=== PATIENT | male | born 1930 | race Caucasian/White ===

== ENCOUNTER 2017-02-22 00:07 | Inpatient (IN) | payer MEDICARE ==
[2017-02-22] VITALS (887 sets, daily range): BP systolic 96–165; BP diastolic 64–95; PULSE 58–97; TEMP 97.6–98; O2SAT 88–100
[~2017-02-22] VITALS: Ht 165.1 cm; Wt 68.9 kg
[~2017-02-22 00:07] MED LIST: ALPHA LIPOIC A200 MG PO; ASPIRIN 32325 MG/TAB PO; ATIVAN 0.50.5 MG/TAB PO; BIOTIN1000 MCG; CALCIUM500 MG PO; CALCIUM600 M1 PO; CHROMIUM PICO500 MCG PO; CINNAMON500 MG PO; CO Q-1050 MG; CORDARONE200 MG/TAB PO; CRESTOR20 MG PO; CRESTOR40 MG PO; FOLIC ACID 40400 MCG; GLUCOPHAGE XR750 MG PO; GLUCOPHAGE500 MG/TAB; GLUCOPHAGE500 MG/TAB PO; HALLS5 MG MM; HYZAAR 25 MG-101 TAB PO; L-ARGININE500 M2 PO; L-CARNITINE500 MG PO; LASIX 40MG TABL40 MG PO; LUTEIN20 MG PO; MAALOX 225 MG/150 ML PO; MAGNESIUM100 MG; MULTI VITAMINS1 TAB PO; MULTIPLE VITAMI1 CAP PO; NAPROSYN25 MG/ML PO; NIACIN500 MG PO; NORCO 325 MG-51 TAB PO; NORVASC 10MG10 MG PO; OMEGA-3 FISH1200 MG; PANTOTHENIC AC500 MG PO; POTASSIUM75 MG; PRADAXA 150MG150 MG PO; PREDNISONE10 MG PO; PRENATAL MULTI PO; PRILOSEC 20MG20 MG PO; TENORMIN 5050 MG/TAB PO; TYLENOL 325MG325 MG PO; TYLENOL 500MG500 MG PO; VITAMIN B COMPL1 SGL PO; VITAMIN B COMPL1 T16 PO; VITAMIN C500 MG PO; VITAMIN D32000 I1 PO; ZESTRIL 20MG TA20 MG PO; ZESTRIL40 MG PO; ZITHROMAX500 M2 PO; [UNRECOGNIZED DRUG - OTHER] PO
[2017-02-22 00:40] LABS: BASO # 0.1 (0.0-0.2); BASO % 0.5 % (0.0-2.0); EOS # 0.6 (0.0-0.7); EOS % 4.8 % (0-4.0); GRAN # 9.2 (1.4-6.5); GRAN % 75.4 % (42.2-75.2); HEMATOCRIT 38.5 % (42.0-52.0); HEMOGLOBIN 12.7 g/dl (13.5-18.0); LYMPH # 1.3 (1.2-3.4); MEAN CELL VOLUME 88 fl (80.0-100.0); MEAN CORPUSCULAR HEMOGLOBIN 29 pg (27.0-31.0); MEAN CORPUSCULAR HGB CONC 33 g/dl (33.0-37.0); MEAN PLATELET VOLUME 11.1 fl (7.4-10.4); MONO % 7.8 % (1.7-9.3); PLATELET COUNT 195 K/mm3 (130-400); RED BLOOD COUNT 4.36 M/mm3 (4.20-5.60); REDCELL DISTRIBUTION WIDTH-CV 14.3 % (11.5-14.5); WHITE BLOOD COUNT 12.2 K/mm3 (4.8-10.8)
[2017-02-22 00:44] LABS: INR 1.4 (0.8-3.0); PROTHROMBIN TIME 15.4 SECONDS (9.7-12.8)
[2017-02-22 00:47] LABS: PARTIAL THROMBOPLASTIN TIME 31.8 SECONDS (26.0-37.0)
[2017-02-22 01:02] LABS: ADJUSTED CALCIUM 10.1 mg/dL (8.4-10.2); ALBUMIN 4.4 gm/dL (3.5-5.0); BILIRUBIN,TOTAL 0.9 mg/dL (0.0-1.0); CALCIUM 10.4 mg/dL (8.4-10.2); CREATININE, serum 0.91 mg/dL (0.66-1.25); POTASSIUM 4.2 mmol/L (3.4-5.0); TOTAL PROTEIN 7.5 gm/dL (6.4-8.2)
[2017-02-22 01:12] LABS: TROPONIN-I 0.015 ng/mL (0.000-0.034)
[2017-02-22] MEDS ORDERED: CRESTOR 10MG10 MG PO (01:27)
[2017-02-22] MEDS ORDERED: ENTRESTO 24 MG1 EACH PO (01:27)
[2017-02-22] MEDS ORDERED: ELIQUIS 5MG PO (01:46)
[2017-02-22] MEDS ORDERED: NITROSTAT0.4 MG/TAB SL (01:48)
[2017-02-22] MEDS ORDERED: ASPIRIN 81M81 MG/TA2 PO (01:49)
[2017-02-22] MEDS ORDERED: JANUVIA 100MG100 MG PO (01:49)
[2017-02-22] MEDS ORDERED: VITAMIN D32000 I1 PO (01:50)
[2017-02-22] MEDS ORDERED: OSCAL 500 TAB500 MG PO (01:52)
[2017-02-22] MEDS ORDERED: OMEGA-3 1000 MG1 CAP PO (01:52)
[2017-02-22] MEDS ORDERED: CINSULIN PO (01:54)
[2017-02-22 12:20] LABS: BASO # 0.1 (0.0-0.2); BASO % 0.6 % (0.0-2.0); EOS # 0.2 (0.0-0.7); EOS % 2.6 % (0-4.0); GRAN # 6.8 (1.4-6.5); LYMPH # 0.9 (1.2-3.4); LYMPH % 9.9 % (20.0-51.0); MEAN CELL VOLUME 88 fl (80.0-100.0); MEAN CORPUSCULAR HGB CONC 33 g/dl (33.0-37.0); MEAN PLATELET VOLUME 12.1 fl (7.4-10.4); MONO # 0.9 (0.1-0.6); MONO % 9.6 % (1.7-9.3); PLATELET COUNT 151 K/mm3 (130-400); RED BLOOD COUNT 4.09 M/mm3 (4.20-5.60); REDCELL DISTRIBUTION WIDTH-CV 14.3 % (11.5-14.5); WHITE BLOOD COUNT 8.8 K/mm3 (4.8-10.8)
[2017-02-22 12:22] LABS: HEMATOCRIT 35.9 % (42.0-52.0); HEMOGLOBIN 11.8 g/dl (13.5-18.0); MEAN CORPUSCULAR HEMOGLOBIN 29 pg (27.0-31.0)
[2017-02-22 12:27] LABS: CALCIUM 9.8 mg/dL (8.4-10.2); CREATININE, serum 0.86 mg/dL (0.66-1.25); MAGNESIUM 1.4 mg/dL (1.6-2.3); PHOSPHOROUS 3.4 mg/dL (2.5-4.5); POTASSIUM 3.9 mmol/L (3.4-5.0)
[2017-02-23] VITALS (652 sets, daily range): BP systolic 97–135; BP diastolic 54–78; PULSE 50–90; TEMP 97.6–98.2; O2SAT 81–100
[2017-02-23 06:41] LABS: CALCIUM 9.5 mg/dL (8.4-10.2); CREATININE, serum 1.06 mg/dL (0.66-1.25); MAGNESIUM 1.3 mg/dL (1.6-2.3); POTASSIUM 3.3 mmol/L (3.4-5.0)
[2017-02-24 03:46] VITALS: BP 125/57; PULSE 51; TEMP 97.7
[2017-02-24 07:51] LABS: CALCIUM 9.7 mg/dL (8.4-10.2); CREATININE, serum 1.22 mg/dL (0.66-1.25); MAGNESIUM 1.8 mg/dL (1.6-2.3); POTASSIUM 4.2 mmol/L (3.4-5.0)
[2017-02-24 08:16] VITALS: BP 129/67; PULSE 47; TEMP 98
[2017-02-24 12:01] VITALS: BP 121/52; PULSE 51; TEMP 98.3
== END 2017-02-24 15:51 | disposition home or self-care (01) | DRG 293 ==
LOC: COL.ER 00:07 → IMCU 01:26 → MEDICAL 02-23 17:50
PROVIDERS: Emergency Medicine; Internal Medicine; Nurse Practitioner Family
DX: I11.0 Hypertensive heart disease with heart failure (principal); I50.23 Acute on chronic systolic (congestive) heart failure; I48.91 Unspecified atrial fibrillation; I25.10 Atherosclerotic heart disease of native coronary artery without angina pectoris; Z95.1 Presence of aortocoronary bypass graft; E11.9 Type 2 diabetes mellitus without complications; Z85.72 Personal history of non-Hodgkin lymphomas; Z79.01 Long term (current) use of anticoagulants; Z87.891 Personal history of nicotine dependence
CPT/HCPCS: 99222-AI; 99232-AI; 99238; J0282; J1815; J1940; J3475; J7050; J7060

== ENCOUNTER 2017-08-04 06:46 | Observation (INO) | payer MEDICARE ==
[~2017-08-04] VITALS: Ht 165.1 cm; Wt 68.8 kg
[~2017-08-04 06:46] MED LIST changes: +ASPIRIN 81M81 MG/TA2 PO; +CINSULIN PO; +CRESTOR 10MG10 MG PO; +ELIQUIS 5MG PO; +ENTRESTO 24 MG1 EACH PO; +JANUVIA 100MG100 MG PO; +NITROSTAT0.4 MG/TAB SL; +OMEGA-3 1000 MG1 CAP PO; +OSCAL 500 TAB500 MG PO
[2017-08-04] MEDS ORDERED: CRESTOR 10MG10 MG PO (07:07)
[2017-08-04] MEDS ORDERED: TENORMIN 5050 MG/TAB PO (07:07)
[2017-08-04] MEDS ORDERED: ENTRESTO 97 MG1 EACH PO (07:07)
[2017-08-04] MEDS ORDERED: GLUCOPHAGE XR750 MG PO (07:08)
[2017-08-04] MEDS ORDERED: ELIQUIS 5MG PO (07:08)
[2017-08-04] MEDS ORDERED: CORDARONE200 MG/TAB PO (07:08)
[2017-08-04] MEDS ORDERED: ASPIRIN E.C. 8181 MG PO (07:09)
[2017-08-04] MEDS ORDERED: NITROSTAT0.4 MG/TAB SL (07:09)
[2017-08-04] MEDS ORDERED: NORVASC 5MG5 MG/TAB PO (07:09)
[2017-08-04] MEDS ORDERED: B COMPLEX #11 TAB PO (07:10)
[2017-08-04] MEDS ORDERED: PROBIOTIC FORMU1 CAP PO (07:10)
[2017-08-04] MEDS ORDERED: MASON NATURAL2000 IU PO (07:11)
[2017-08-04] MEDS ORDERED: OMEGA-3 1000 MG1 CAP PO (07:11)
[2017-08-04] MEDS ORDERED: OSCAL 500 TAB500 MG PO (07:11)
[2017-08-04] MEDS ORDERED: CINNAMON500 MG PO (07:12)
[2017-08-04 07:42] LABS: ARTERIAL BLD GAS O2 SATURATION 92.5 % (92-100); ARTERIAL BLD GAS TCO2 CT 27.2; ARTERIAL BLOOD GAS BASE EXCESS 1.4 (-2-2); ARTERIAL BLOOD GAS HCO3 25.9 meq/L (22-26); ARTERIAL BLOOD GAS PO2 64.2 mmHg (80-100); ARTERIAL BLOOD GAS pH 7.42 (7.35-7.45); OXYHEMOGLOBIN 91.6 %
[2017-08-04 07:44] LABS: ALLEN TEST YES; ALLENS TEST RESULT PASS; ATS? YES
[2017-08-04 08:11] LABS: BASO # 0.1 (0.0-0.2); BASO % 0.8 % (0.0-2.0); EOS # 0.3 (0.0-0.7); EOS % 3.7 % (0-4.0); GRAN % 79.6 % (42.2-75.2); LYMPH # 0.6 (1.2-3.4); LYMPH % 7.2 % (20.0-51.0); MEAN CELL VOLUME 93 fl (80.0-100.0); MEAN CORPUSCULAR HGB CONC 32 g/dl (33.0-37.0); MEAN PLATELET VOLUME 11.2 fl (7.4-10.4); MONO # 0.7 (0.1-0.6); MONO % 8.2 % (1.7-9.3); PLATELET COUNT 166 K/mm3 (130-400); REDCELL DISTRIBUTION WIDTH-CV 14.6 % (11.5-14.5); WHITE BLOOD COUNT 8.8 K/mm3 (4.8-10.8)
[2017-08-04 08:12] LABS: HEMATOCRIT 32.4 % (42.0-52.0); HEMOGLOBIN 10.3 g/dl (13.5-18.0); MEAN CORPUSCULAR HEMOGLOBIN 29 pg (27.0-31.0)
[2017-08-04 08:14] LABS: INR 1.3 (0.8-3.0)
[2017-08-04 08:17] LABS: PARTIAL THROMBOPLASTIN TIME 38.9 SECONDS (26.0-37.0)
[2017-08-04 08:28] LABS: ADJUSTED CALCIUM 9.6 mg/dL (8.4-10.2); ALBUMIN 3.9 gm/dL (3.5-5.0); BILIRUBIN,TOTAL 1.1 mg/dL (0.0-1.0); CALCIUM 9.5 mg/dL (8.4-10.2); CREATININE, serum 0.89 mg/dL (0.66-1.25); POTASSIUM 3.9 mmol/L (3.4-5.0); TOTAL PROTEIN 6.3 gm/dL (6.4-8.2)
[2017-08-04 08:40] LABS: TROPONIN-I 0.023 ng/mL (0.000-0.034)
[2017-08-04] MEDS ORDERED: LASIX 20MG TABL20 MG PO (08:44)
[2017-08-04] MEDS ORDERED: PACERONE100 MG PO (08:44)
[2017-08-04] MEDS ORDERED: HCTZ 25MG TAB25 MG PO (08:44)
[2017-08-04 10:25] VITALS: BP 152/63; PULSE 49; TEMP 97.6
[2017-08-04 14:02] VITALS: BP 132/56; PULSE 57; TEMP 98.4
[2017-08-04 17:41] VITALS: BP 138/61; PULSE 48; TEMP 98.6
[2017-08-04 21:07] VITALS: BP 123/54; PULSE 51; TEMP 97.7
[2017-08-05 03:05] VITALS: BP 136/50; PULSE 92; TEMP 98
[2017-08-05 04:53] LABS: CALCIUM 9.5 mg/dL (8.4-10.2); CREATININE, serum 1.11 mg/dL (0.66-1.25); MAGNESIUM 1.5 mg/dL (1.6-2.3); POTASSIUM 3.5 mmol/L (3.4-5.0)
[2017-08-05 08:55] VITALS: BP 136/49; PULSE 51; TEMP 98.3
[2017-08-05] MEDS ORDERED: K-TAB20 PO (09:19)
[2017-08-05] MEDS ORDERED: LASIX 40MG TABL40 MG PO (09:27)
[2017-08-05] MEDS ORDERED: VENTOLIN0.09 MG IH (09:27)
[2017-08-05] MEDS ORDERED: PREDNISONE20 MG PO (09:29)
== END 2017-08-05 10:00 | disposition home or self-care (01) ==
LOC: COL.ER 06:46 → SURG 09:15
PROVIDERS: Emergency Medicine; Internal Medicine
DX: I11.0 Hypertensive heart disease with heart failure (principal); I50.9 Heart failure, unspecified; J43.9 Emphysema, unspecified; I48.0 Paroxysmal atrial fibrillation; E11.9 Type 2 diabetes mellitus without complications; C85.90 Non-Hodgkin lymphoma, unspecified, unspecified site; I08.3 Combined rheumatic disorders of mitral, aortic and tricuspid valves; E78.5 Hyperlipidemia, unspecified; Z79.01 Long term (current) use of anticoagulants; Z79.84 Long term (current) use of oral hypoglycemic drugs; Z87.891 Personal history of nicotine dependence; Z80.0 Family history of malignant neoplasm of digestive organs; Z80.43 Family history of malignant neoplasm of testis
CPT/HCPCS: G0378; J1644; J1815; J1940; J2270; J7512

== ENCOUNTER 2017-12-02 07:55 | Inpatient (IN) | payer MEDICARE ==
[2017-12-02] VITALS (501 sets, daily range): BP systolic 147–158; BP diastolic 76–94; PULSE 65–84; TEMP 97.2–97.6; O2SAT 82–98
[~2017-12-02] VITALS: Ht 165.1 cm; Wt 64.1 kg
[~2017-12-02 07:55] MED LIST changes: +ASPIRIN E.C. 8181 MG PO; +B COMPLEX #11 TAB PO; +ENTRESTO 97 MG1 EACH PO; +HCTZ 25MG TAB25 MG PO; +K-TAB20 PO; +LASIX 20MG TABL20 MG PO; +MASON NATURAL2000 IU PO; +NORVASC 5MG5 MG/TAB PO; +PACERONE100 MG PO; +PREDNISONE20 MG PO; +PROBIOTIC FORMU1 CAP PO; +VENTOLIN0.09 MG IH
[2017-12-02 08:40] LABS: BASO % 0.4 % (0.0-2.0); EOS # 0.7 (0.0-0.7); GRAN # 8.4 (1.4-6.5); GRAN % 79.5 % (42.2-75.2); LYMPH # 0.6 (1.2-3.4); LYMPH % 5.2 % (20.0-51.0); MEAN CELL VOLUME 89 fl (80.0-100.0); MEAN CORPUSCULAR HGB CONC 32 g/dl (33.0-37.0); MEAN PLATELET VOLUME 10.3 fl (7.4-10.4); MONO # 0.8 (0.1-0.6); MONO % 7.1 % (1.7-9.3); PLATELET COUNT 319 K/mm3 (130-400); RED BLOOD COUNT 3.27 M/mm3 (4.20-5.60); REDCELL DISTRIBUTION WIDTH-CV 14.6 % (11.5-14.5)
[2017-12-02 08:41] LABS: HEMATOCRIT 29.2 % (42.0-52.0); HEMOGLOBIN 9.2 g/dl (13.5-18.0); MEAN CORPUSCULAR HEMOGLOBIN 28 pg (27.0-31.0)
[2017-12-02] MEDS ORDERED: TOPROL XL 25MG25 MG PO (08:43)
[2017-12-02 08:44] LABS: INR 2.1 (0.8-3.0); PROTHROMBIN TIME 24.2 SECONDS (9.7-12.8)
[2017-12-02] MEDS ORDERED: COZAAR100 MG PO (08:44)
[2017-12-02 08:45] LABS: ALBUMIN 3.8 gm/dL (3.5-5.0); BILIRUBIN,TOTAL 0.7 mg/dL (0.0-1.0); C-REACTIVE PROTEIN 8.1 mg/dL (0.0-0.9); CALCIUM 9.6 mg/dL (8.4-10.2); CREATININE, serum 0.94 mg/dL (0.66-1.25); POTASSIUM 3.5 mmol/L (3.4-5.0); TOTAL PROTEIN 6.8 gm/dL (6.4-8.2)
[2017-12-02 08:56] LABS: INFLUENZA A NEGATIVE; INFLUENZA B NEGATIVE
[2017-12-02 08:59] LABS: TROPONIN-I 0.036 ng/mL (0.000-0.034)
[2017-12-02 09:04] LABS: COLLECTION METHOD CLEAN CATCH
[2017-12-02 09:15] LABS: PH 5 (5-8); SQUAMOUS EPITHELIAL None Seen /hpf; URINE APPEARANCE Clear; URINE BACTERIA None Seen /hpf; URINE BILIRUBIN Negative (NEGATIVE); URINE BLOOD Negative (NEGATIVE); URINE COLOR Straw; URINE GLUCOSE Negative (NEGATIVE); URINE KETONE Negative (NEGATIVE); URINE LEUKOCYTE ESTERASE Negative (NEGATIVE); URINE NITRATE Negative (NEGATIVE); URINE PROTEIN(semi-quant) Negative (NEGATIVE); URINE RBC 0-2 /hpf; URINE UROBILINOGEN Negative (NEGATIVE)
[2017-12-02 18:19] LABS: CALCIUM 9.3 mg/dL (8.4-10.2); CREATININE, serum 0.91 mg/dL (0.66-1.25); POTASSIUM 3.6 mmol/L (3.4-5.0)
[2017-12-03] VITALS (1177 sets, daily range): BP systolic 90–154; BP diastolic 69–85; PULSE 64–116; TEMP 97.1–98.1; O2SAT 73–100
[2017-12-03 05:01] LABS: BASO % 0.4 % (0.0-2.0); EOS # 0.5 (0.0-0.7); EOS % 4.1 % (0-4.0); GRAN # 9.1 (1.4-6.5); GRAN % 83.7 % (42.2-75.2); LYMPH # 0.5 (1.2-3.4); LYMPH % 4.9 % (20.0-51.0); MEAN CELL VOLUME 88 fl (80.0-100.0); MEAN CORPUSCULAR HGB CONC 32 g/dl (33.0-37.0); MEAN PLATELET VOLUME 9.8 fl (7.4-10.4); MONO # 0.7 (0.1-0.6); MONO % 6.3 % (1.7-9.3); PLATELET COUNT 312 K/mm3 (130-400); RED BLOOD COUNT 3.22 M/mm3 (4.20-5.60); REDCELL DISTRIBUTION WIDTH-CV 14.4 % (11.5-14.5)
[2017-12-03 05:03] LABS: HEMATOCRIT 28.4 % (42.0-52.0); MEAN CORPUSCULAR HEMOGLOBIN 28 pg (27.0-31.0)
[2017-12-03 05:10] LABS: CALCIUM 9.8 mg/dL (8.4-10.2); CREATININE, serum 0.86 mg/dL (0.66-1.25); POTASSIUM 3.3 mmol/L (3.4-5.0)
[2017-12-03 05:16] LABS: MAGNESIUM 1.2 mg/dL (1.6-2.3); PHOSPHOROUS 3.7 mg/dL (2.5-4.5)
[2017-12-03 10:24] LABS: ARTERIAL BLD GAS O2 SATURATION 91.9 % (92-100); ARTERIAL BLD GAS TCO2 CT 29.9; ARTERIAL BLOOD GAS BASE EXCESS 5.3 (-2-2); ARTERIAL BLOOD GAS HCO3 28.8 meq/L (22-26); ARTERIAL BLOOD GAS PCO2 37.3 mmHg (35-45); ARTERIAL BLOOD GAS PO2 62.5 mmHg (80-100); ARTERIAL BLOOD GAS pH 7.51 (7.35-7.45)
[2017-12-04] VITALS (1172 sets, daily range): BP systolic 117–143; BP diastolic 61–77; PULSE 63–77; TEMP 97–98.2; O2SAT 72–100
[2017-12-04 06:53] LABS: BASO # 0.1 (0.0-0.2); BASO % 0.7 % (0.0-2.0); EOS # 0.7 (0.0-0.7); EOS % 7.9 % (0-4.0); GRAN # 6.9 (1.4-6.5); GRAN % 76.6 % (42.2-75.2); LYMPH # 0.6 (1.2-3.4); LYMPH % 6.3 % (20.0-51.0); MEAN CELL VOLUME 88 fl (80.0-100.0); MEAN CORPUSCULAR HGB CONC 32 g/dl (33.0-37.0); MEAN PLATELET VOLUME 10.2 fl (7.4-10.4); MONO # 0.7 (0.1-0.6); MONO % 8.2 % (1.7-9.3); PLATELET COUNT 318 K/mm3 (130-400); RED BLOOD COUNT 2.98 M/mm3 (4.20-5.60); REDCELL DISTRIBUTION WIDTH-CV 14.5 % (11.5-14.5)
[2017-12-04 06:56] LABS: HEMATOCRIT 26.3 % (42.0-52.0); HEMOGLOBIN 8.4 g/dl (13.5-18.0); MEAN CORPUSCULAR HEMOGLOBIN 28 pg (27.0-31.0)
[2017-12-04 07:05] LABS: ALBUMIN 3.1 gm/dL (3.5-5.0); BILIRUBIN,TOTAL 0.5 mg/dL (0.0-1.0); CALCIUM 9.1 mg/dL (8.4-10.2); CREATININE, serum 0.91 mg/dL (0.66-1.25); MAGNESIUM 2.1 mg/dL (1.6-2.3); POTASSIUM 4.2 mmol/L (3.4-5.0)
[2017-12-05] VITALS (898 sets, daily range): BP systolic 110–143; BP diastolic 49–74; PULSE 58–78; TEMP 97–98.5; O2SAT 72–100
[2017-12-05 06:18] LABS: BASO # 0.1 (0.0-0.2); BASO % 0.9 % (0.0-2.0); EOS # 0.8 (0.0-0.7); EOS % 9.7 % (0-4.0); GRAN # 5.9 (1.4-6.5); GRAN % 73.8 % (42.2-75.2); LYMPH # 0.5 (1.2-3.4); LYMPH % 6.8 % (20.0-51.0); MEAN CELL VOLUME 88 fl (80.0-100.0); MEAN CORPUSCULAR HGB CONC 32 g/dl (33.0-37.0); MEAN PLATELET VOLUME 10.2 fl (7.4-10.4); MONO # 0.7 (0.1-0.6); MONO % 8.4 % (1.7-9.3); PLATELET COUNT 356 K/mm3 (130-400); RED BLOOD COUNT 3.13 M/mm3 (4.20-5.60); REDCELL DISTRIBUTION WIDTH-CV 14.6 % (11.5-14.5)
[2017-12-05 06:28] LABS: HEMATOCRIT 27.6 % (42.0-52.0); HEMOGLOBIN 8.7 g/dl (13.5-18.0); MEAN CORPUSCULAR HEMOGLOBIN 28 pg (27.0-31.0)
[2017-12-05 06:37] LABS: CALCIUM 9.5 mg/dL (8.4-10.2); CREATININE, serum 0.93 mg/dL (0.66-1.25); MAGNESIUM 1.7 mg/dL (1.6-2.3); PHOSPHOROUS 4.7 mg/dL (2.5-4.5); POTASSIUM 3.8 mmol/L (3.4-5.0)
[2017-12-05 10:55] LABS: INR 1.3 (0.8-3.0); PROTHROMBIN TIME 15.2 SECONDS (9.7-12.8)
[2017-12-06] VITALS (13 sets, daily range): BP systolic 102–137; BP diastolic 49–64; PULSE 7–76; TEMP 97.3–98.6
[2017-12-06 07:22] LABS: CALCIUM 9.6 mg/dL (8.4-10.2); POTASSIUM 4.2 mmol/L (3.4-5.0)
[2017-12-07] VITALS (11 sets, daily range): BP systolic 102–145; BP diastolic 43–115; PULSE 58–79; TEMP 97.7–98.2
[2017-12-07 07:28] LABS: BASO # 0.1 (0.0-0.2); BASO % 0.7 % (0.0-2.0); EOS # 0.8 (0.0-0.7); EOS % 9.5 % (0-4.0); GRAN # 5.9 (1.4-6.5); GRAN % 72.9 % (42.2-75.2); LYMPH # 0.6 (1.2-3.4); LYMPH % 7.3 % (20.0-51.0); MEAN CELL VOLUME 89 fl (80.0-100.0); MEAN CORPUSCULAR HGB CONC 31 g/dl (33.0-37.0); MEAN PLATELET VOLUME 10.4 fl (7.4-10.4); MONO # 0.8 (0.1-0.6); MONO % 9.5 % (1.7-9.3); PLATELET COUNT 355 K/mm3 (130-400); RED BLOOD COUNT 2.83 M/mm3 (4.20-5.60); REDCELL DISTRIBUTION WIDTH-CV 14.2 % (11.5-14.5)
[2017-12-07 07:37] LABS: HEMATOCRIT 25.2 % (42.0-52.0); HEMOGLOBIN 7.9 g/dl (13.5-18.0); MEAN CORPUSCULAR HEMOGLOBIN 28 pg (27.0-31.0)
[2017-12-07 07:44] LABS: CALCIUM 9.2 mg/dL (8.4-10.2); CREATININE, serum 1.15 mg/dL (0.66-1.25)
[2017-12-07 10:21] LABS: RETIC # 0.06 M/mm3 (0.02-0.16); RETIC % 1.8 % (0.5-3.52)
[2017-12-07 10:34] LABS: IRON,SERUM 19 ug/dL (35-150)
[2017-12-07 10:45] LABS: TOTAL IRON BINDING CAPACITY 281 ug/dL (261-462)
[2017-12-07 11:06] LABS: FERRITIN 107 ng/mL (18-464)
[2017-12-08 03:13] VITALS: BP 104/43; PULSE 57; TEMP 98.6
[2017-12-08 06:16] LABS: BASO # 0.1 (0.0-0.2); BASO % 1.1 % (0.0-2.0); EOS # 0.8 (0.0-0.7); EOS % 11.7 % (0-4.0); GRAN # 4.3 (1.4-6.5); GRAN % 64.5 % (42.2-75.2); LYMPH # 0.7 (1.2-3.4); LYMPH % 10.6 % (20.0-51.0); MEAN CELL VOLUME 89 fl (80.0-100.0); MEAN CORPUSCULAR HGB CONC 32 g/dl (33.0-37.0); MEAN PLATELET VOLUME 10.2 fl (7.4-10.4); MONO # 0.8 (0.1-0.6); MONO % 11.8 % (1.7-9.3); PLATELET COUNT 334 K/mm3 (130-400); RED BLOOD COUNT 2.99 M/mm3 (4.20-5.60); REDCELL DISTRIBUTION WIDTH-CV 14.3 % (11.5-14.5)
[2017-12-08 06:26] LABS: HEMATOCRIT 26.7 % (42.0-52.0); HEMOGLOBIN 8.4 g/dl (13.5-18.0); MEAN CORPUSCULAR HEMOGLOBIN 28 pg (27.0-31.0)
[2017-12-08 06:33] LABS: CALCIUM 9.2 mg/dL (8.4-10.2); CREATININE, serum 1.23 mg/dL (0.66-1.25); POTASSIUM 3.8 mmol/L (3.4-5.0)
[2017-12-08 08:18] VITALS: BP 117/58; PULSE 71; TEMP 98.7
[2017-12-08 12:06] VITALS: BP 107/52; PULSE 55; TEMP 97.7
[2017-12-08] MEDS ORDERED: PACERONE200 MG PO (13:34)
[2017-12-08] MEDS ORDERED: ALDACTONE 25MG25 M1 PO (13:35)
[2017-12-08] MEDS ORDERED: STOOL SOFTENER100 M2 PO (13:36)
[2017-12-08] MEDS ORDERED: COREG 3.123.125 MG/T PO (13:36)
[2017-12-08] MEDS ORDERED: FLOMAX 0.40.4 MG/CAP PO (13:36)
[2017-12-08] MEDS ORDERED: IMDUR 30MG30 MG/TAB PO (13:37)
[2017-12-08] MEDS ORDERED: FERROUS SU325 MG/TAB PO (13:37)
== END 2017-12-08 17:08 | disposition home or self-care (01) | DRG 291 ==
LOC: COL.ER 07:55 → ICU 09:32 → MEDICAL 12-05 17:45
PROVIDERS: Emergency Medicine; Internal Medicine; Internal Medicine Pulmonary Disease; Physician Assistant
DX: I11.0 Hypertensive heart disease with heart failure (principal); J96.01 Acute respiratory failure with hypoxia; J98.11 Atelectasis; E44.0 Moderate protein-calorie malnutrition; I50.23 Acute on chronic systolic (congestive) heart failure; I25.10 Atherosclerotic heart disease of native coronary artery without angina pectoris; Z95.1 Presence of aortocoronary bypass graft; E11.9 Type 2 diabetes mellitus without complications; I48.0 Paroxysmal atrial fibrillation; D64.9 Anemia, unspecified; Z85.72 Personal history of non-Hodgkin lymphomas; E87.6 Hypokalemia; E83.42 Hypomagnesemia; N13.9 Obstructive and reflux uropathy, unspecified
CPT/HCPCS: 99222-AI; 99232-AI; 99233-AI; 99239; A9284; A9502; G0103; J0456; J0696; J1815; J1940; J2785; J3475; J3480; J7050; P9016; Q9967

== ENCOUNTER → 2018-01-27 | Outpatient (CLI) | payer MEDICARE ==
[~2018-01-27] MED LIST changes: +ALDACTONE 25MG25 M1 PO; +COREG 3.123.125 MG/T PO; +COZAAR100 MG PO; +FERROUS SU325 MG/TAB PO; +FLOMAX 0.40.4 MG/CAP PO; +IMDUR 30MG30 MG/TAB PO; +PACERONE200 MG PO; +STOOL SOFTENER100 M2 PO; +TOPROL XL 25MG25 MG PO
== END ==
LOC: COL.RAD 09:46
DX: C85.91 Non-Hodgkin lymphoma, unspecified, lymph nodes of head, face, and neck (principal); C83.38 Diffuse large B-cell lymphoma, lymph nodes of multiple sites; R91.8 Other nonspecific abnormal finding of lung field; K22.8 Other specified diseases of esophagus; I70.0 Atherosclerosis of aorta; I25.10 Atherosclerotic heart disease of native coronary artery without angina pectoris; K43.9 Ventral hernia without obstruction or gangrene; I77.819 Aortic ectasia, unspecified site
CPT/HCPCS: Q9967

== ENCOUNTER 2018-05-03 19:44 | Emergency (ER) | payer MEDICARE ==
[~2018-05-03] VITALS: Ht 165.1 cm; Wt 86.4 kg
[2018-05-03 20:08] LABS: BASO % 0.3 % (0.0-2.0); EOS # 0.4 (0.0-0.7); EOS % 6.5 % (0-4.0); GRAN # 3.3 (1.4-6.5); GRAN % 52.7 % (42.2-75.2); LYMPH # 2.2 (1.2-3.4); MEAN CELL VOLUME 94 fl (80.0-100.0); MEAN CORPUSCULAR HGB CONC 32 g/dl (33.0-37.0); MEAN PLATELET VOLUME 10.2 fl (7.4-10.4); MONO # 0.4 (0.1-0.6); MONO % 5.7 % (1.7-9.3); PLATELET COUNT 116 K/mm3 (130-400); RED BLOOD COUNT 1.98 M/mm3 (4.20-5.60); REDCELL DISTRIBUTION WIDTH-CV 14.3 % (11.5-14.5)
[2018-05-03 20:11] LABS: HEMATOCRIT 18.7 % (42.0-52.0); MEAN CORPUSCULAR HEMOGLOBIN 30 pg (27.0-31.0)
[2018-05-03 20:13] VITALS: TEMP 97.1
[2018-05-03 20:15] LABS: CREATININE, serum 0.87 mg/dL (0.66-1.25)
[2018-05-03 20:22] LABS: POTASSIUM 2.7 mmol/L (3.4-5.0)
[2018-05-03 20:24] LABS: CALCIUM 4.5 mg/dL (8.4-10.2)
[2018-05-03 20:24] LABS: ARTERIAL BLD GAS O2 SATURATION 98.9 % (92-100); ARTERIAL BLD GAS TCO2 CT 17.2; ARTERIAL BLOOD GAS BASE EXCESS -7.9 (-2-2); ARTERIAL BLOOD GAS HCO3 16.3 meq/L (22-26); ARTERIAL BLOOD GAS PCO2 28.6 mmHg (35-45); ARTERIAL BLOOD GAS pH 7.37 (7.35-7.45)
[2018-05-03 20:25] LABS: ARTERIAL BLOOD GAS PO2 523.9 mmHg (80-100)
[2018-05-03 20:30] LABS: TROPONIN-I 0.051 ng/mL (0.000-0.034)
[2018-05-03 20:36] VITALS: BP 79/46; PULSE 69
== END 2018-05-03 20:55 | disposition short-term general hospital (02) ==
LOC: COL.ER 19:44
PROVIDERS: Emergency Medicine
DX: R00.1 Bradycardia, unspecified (principal); I46.9 Cardiac arrest, cause unspecified; I25.10 Atherosclerotic heart disease of native coronary artery without angina pectoris; Z79.84 Long term (current) use of oral hypoglycemic drugs; Z79.82 Long term (current) use of aspirin; Z95.1 Presence of aortocoronary bypass graft
CPT/HCPCS: J3010

== ENCOUNTER 2018-05-19 14:37 | Emergency (ER) | payer MEDICARE ==
[~2018-05-19] VITALS: Ht 165.1 cm; Wt 65.5 kg
[2018-05-19 14:39] VITALS: TEMP 98.2
[2018-05-19 15:21] LABS: BASO # 0.1 (0.0-0.2); BASO % 0.7 % (0.0-2.0); EOS # 0.3 (0.0-0.7); EOS % 4.1 % (0-4.0); GRAN # 6.8 (1.4-6.5); GRAN % 81.1 % (42.2-75.2); LYMPH # 0.4 (1.2-3.4); LYMPH % 4.9 % (20.0-51.0); MEAN CELL VOLUME 95 fl (80.0-100.0); MEAN CORPUSCULAR HGB CONC 31 g/dl (33.0-37.0); MEAN PLATELET VOLUME 9.9 fl (7.4-10.4); MONO # 0.7 (0.1-0.6); MONO % 8.7 % (1.7-9.3); PLATELET COUNT 312 K/mm3 (130-400); RED BLOOD COUNT 2.37 M/mm3 (4.20-5.60); REDCELL DISTRIBUTION WIDTH-CV 15.6 % (11.5-14.5)
[2018-05-19 15:22] LABS: HEMATOCRIT 22.5 % (42.0-52.0); MEAN CORPUSCULAR HEMOGLOBIN 30 pg (27.0-31.0)
[2018-05-19 15:36] LABS: ALBUMIN 3.1 gm/dL (3.5-5.0); BILIRUBIN,TOTAL 0.4 mg/dL (0.0-1.0); C-REACTIVE PROTEIN 2.7 mg/dL (0.0-0.9); CALCIUM 8.9 mg/dL (8.4-10.2); CREATININE, serum 1.36 mg/dL (0.66-1.25); POTASSIUM 3.4 mmol/L (3.4-5.0)
[2018-05-19 15:48] LABS: TROPONIN-I 0.039 ng/mL (0.000-0.034)
[2018-05-19 16:26] LABS: COLLECTION METHOD CLEAN CATCH
[2018-05-19 16:42] LABS: PH 5 (5-8); URINE APPEARANCE Hazy; URINE BACTERIA None Seen /hpf; URINE BILIRUBIN Negative (NEGATIVE); URINE BLOOD 1+ (NEGATIVE); URINE COLOR Yellow; URINE GLUCOSE Negative (NEGATIVE); URINE KETONE Negative (NEGATIVE); URINE LEUKOCYTE ESTERASE 3+ (NEGATIVE); URINE NITRATE Positive (NEGATIVE); URINE PROTEIN(semi-quant) Negative (NEGATIVE); URINE UROBILINOGEN Negative (NEGATIVE)
[2018-05-19 17:45] VITALS: BP 159/73; PULSE 60
== END 2018-05-19 17:55 | disposition short-term general hospital (02) ==
LOC: COL.ER 14:37
PROVIDERS: Emergency Medicine
DX: I50.9 Heart failure, unspecified (principal); D64.9 Anemia, unspecified; N19 Unspecified kidney failure; N39.0 Urinary tract infection, site not specified; Z79.82 Long term (current) use of aspirin; Z79.84 Long term (current) use of oral hypoglycemic drugs; Z95.0 Presence of cardiac pacemaker
CPT/HCPCS: J0696; J1940

== ENCOUNTER → 2018-05-30 | Outpatient (CLI) | payer MEDICARE ==
[2018-05-30 17:13] LABS: BASO # 0.1 (0.0-0.2); BASO % 0.7 % (0.0-2.0); EOS # 0.9 (0.0-0.7); EOS % 10.1 % (0-4.0); GRAN % 71.6 % (42.2-75.2); LYMPH # 0.7 (1.2-3.4); MEAN CELL VOLUME 95 fl (80.0-100.0); MEAN CORPUSCULAR HGB CONC 31 g/dl (33.0-37.0); MEAN PLATELET VOLUME 10.7 fl (7.4-10.4); MONO # 0.8 (0.1-0.6); MONO % 9.4 % (1.7-9.3); PLATELET COUNT 278 K/mm3 (130-400); RED BLOOD COUNT 2.83 M/mm3 (4.20-5.60); REDCELL DISTRIBUTION WIDTH-CV 13.9 % (11.5-14.5)
[2018-05-30 17:17] LABS: HEMATOCRIT 26.8 % (42.0-52.0); HEMOGLOBIN 8.3 g/dl (13.5-18.0); MEAN CORPUSCULAR HEMOGLOBIN 29 pg (27.0-31.0)
[2018-05-30 17:24] LABS: CALCIUM 9.4 mg/dL (8.4-10.2); CREATININE, serum 1.57 mg/dL (0.66-1.25)
[2018-05-30 17:52] LABS: POTASSIUM 2.6 mmol/L (3.4-5.0)
== END ==
LOC: ZCOL.LAB 17:07
PROVIDERS: Internal Medicine
DX: N18.3 Chronic kidney disease, stage 3 (moderate) (principal)

== ENCOUNTER → 2018-08-03 | Outpatient (CLI) | payer MEDICARE ==
[~2018-08-03] MED LIST changes: +KLOR-CON M2020 MEQ PO; +LANTUS SOLOS100 U/ML SQ; +PROTONIX 40MG T40 MG PO; +TOPROL XL 50MG50 MG PO; +ZITHROMAX 250M250 MG PO
== END ==
LOC: COL.RAD 08-02 08:30
DX: C83.38 Diffuse large B-cell lymphoma, lymph nodes of multiple sites (principal); K80.20 Calculus of gallbladder without cholecystitis without obstruction; I70.0 Atherosclerosis of aorta; I77.811 Abdominal aortic ectasia; J90 Pleural effusion, not elsewhere classified; I51.7 Cardiomegaly; K43.9 Ventral hernia without obstruction or gangrene; Z90.5 Acquired absence of kidney; Z90.79 Acquired absence of other genital organ(s)
CPT/HCPCS: Q9967

== ENCOUNTER 2018-11-27 00:49 | Observation (INO) | payer MEDICARE ==
[~2018-11-27] VITALS: Ht 165.1 cm; Wt 59.2 kg
[~2018-11-27 00:49] MED LIST changes: +ZAROXOLYN 2.52.5 MG PO
[2018-11-27] MEDS ORDERED: LASIX 80MG TABL80 MG PO (01:11)
[2018-11-27] MEDS ORDERED: B COMPLEX #11 TAB (01:14)
[2018-11-27] MEDS ORDERED: THE MEDICINE S200 M2 PO (01:14)
[2018-11-27] MEDS ORDERED: EPA FISH OIL1 SGL PO (01:15)
[2018-11-27] MEDS ORDERED: OMEGA-31 SGL PO (01:16)
[2018-11-27] MEDS ORDERED: NIASPAN1000 MG PO (01:18)
[2018-11-27] MEDS ORDERED: PROAIR HFA0.09 MG/AC IH ×2 (01:37)
[2018-11-27] MEDS ORDERED: INCRUSE EL62.5 MCG/A IH (01:38)
[2018-11-27 01:44] LABS: BASO % 0.5 % (0.0-2.0); EOS # 0.1 (0.0-0.7); EOS % 2.3 % (0-4.0); GRAN # 4.4 (1.4-6.5); HEMOGLOBIN 11.2 g/dl (13.5-18.0); LYMPH # 0.9 (1.2-3.4); LYMPH % 14.4 % (20.0-51.0); MEAN CELL VOLUME 94 fl (80.0-100.0); MEAN CORPUSCULAR HEMOGLOBIN 30 pg (27.0-31.0); MEAN CORPUSCULAR HGB CONC 31 g/dl (33.0-37.0); MEAN PLATELET VOLUME 11.2 fl (7.4-10.4); MONO # 0.6 (0.1-0.6); MONO % 9.6 % (1.7-9.3); PLATELET COUNT 167 K/mm3 (130-400); RED BLOOD COUNT 3.79 M/mm3 (4.20-5.60); REDCELL DISTRIBUTION WIDTH-CV 15.3 % (11.5-14.5)
[2018-11-27 01:51] LABS: INR 1.1 (0.8-3.0); PROTHROMBIN TIME 12.7 SECONDS (9.7-12.8)
[2018-11-27 01:53] LABS: HEMATOCRIT 35.7 % (42.0-52.0); PARTIAL THROMBOPLASTIN TIME 35.9 SECONDS (26.0-37.0)
[2018-11-27 01:54] LABS: ALBUMIN 3.9 gm/dL (3.5-5.0); BILIRUBIN,TOTAL 0.8 mg/dL (0.0-1.0); CALCIUM 9.2 mg/dL (8.4-10.2); CREATININE, serum 1.92 mg/dL (0.66-1.25); POTASSIUM 3.5 mmol/L (3.4-5.0); TOTAL PROTEIN 6.8 gm/dL (6.4-8.2)
[2018-11-27 02:15] LABS: TROPONIN-I 0.04 ng/mL (0.000-0.034)
[2018-11-27 10:57] VITALS: BP 152/82; PULSE 62; TEMP 97.3
--- NOTE | 2018-11-27 17:00 | NUR ---
patient returned to room 357 from thoracentesis.patient doing well,resting in bed.denies any concerns at this time.CXR one view in progress now.will continue to monitor.call light in reach
[2018-11-27 17:22] VITALS: BP 138/90; PULSE 96; TEMP 98.4
[2018-11-27 17:28] LABS: GLUCOSE,PLEURAL FLUID 150 mg/dL; TOTAL PROTEIN,PLEURAL FLUID 2.2 gm/dL
[2018-11-27 18:07] LABS: PLEURAL FLUID RBC 13000 /mm3 (0-0); PLEURAL FLUID WBC 363 /mm3
--- NOTE | 2018-11-27 18:08 | NUR ---
Patient told this RN that he was ready to discharge home.This RN called Dr. López and told that patient was willing to go home and Doctor Rene started that patient is not ready to discharge from as far as his health is concerned he is not stable for discharge.patient will have to signed paperwork stating he understand the risks of him leaving against medical advice.This RN explained this to patient and patient stated"I am going home and i will sign"This RN de-accessed patient's salvatore cath and dicontinued patients telemetry and patient got dressing and Fay BORRERO escorted him out.patient left with his and oxygen tank and all other belongings.
[2018-11-27 18:10] LABS: PLEURAL FLUID APPEARANCE HAZY; PLEURAL FLUID COLOR PINK
== END 2018-11-27 18:24 | disposition home or self-care (01) ==
LOC: COL.ER 00:49 → MEDICAL 07:16
PROVIDERS: Emergency Medicine; Internal Medicine Critical Care Medicine; ADMIT Internal Medicine
DX: I13.0 Hypertensive heart and chronic kidney disease with heart failure and stage 1 through stage 4 chronic kidney disease, or unspecified chronic kidney disease (principal); E11.22 Type 2 diabetes mellitus with diabetic chronic kidney disease; N18.9 Chronic kidney disease, unspecified; I50.89 Other heart failure; I25.10 Atherosclerotic heart disease of native coronary artery without angina pectoris; J96.10 Chronic respiratory failure, unspecified whether with hypoxia or hypercapnia; I48.0 Paroxysmal atrial fibrillation; I25.2 Old myocardial infarction; J90 Pleural effusion, not elsewhere classified; I08.1 Rheumatic disorders of both mitral and tricuspid valves; Z79.4 Long term (current) use of insulin; Z95.1 Presence of aortocoronary bypass graft; Z99.81 Dependence on supplemental oxygen; Z85.72 Personal history of non-Hodgkin lymphomas; Z90.5 Acquired absence of kidney; Z85.828 Personal history of other malignant neoplasm of skin; Z87.891 Personal history of nicotine dependence; Z88.0 Allergy status to penicillin; Z88.1 Allergy status to other antibiotic agents; Z88.8 Allergy status to other drugs, medicaments and biological substances
CPT/HCPCS: 99238; G0378; G8978-GP; G8979-GP; J0456; J0696; J1940; J7050

== ENCOUNTER → 2018-12-13 | Emergency (ER) | payer MEDICARE ==
[2018-12-13] VITALS (170 sets, daily range): O2SAT 88–100
[~2018-12-13] MED LIST changes: +B COMPLEX #11 TAB; +EPA FISH OIL1 SGL PO; +INCRUSE EL62.5 MCG/A IH; +LASIX 80MG TABL80 MG PO; +NIASPAN1000 MG PO; +OMEGA-31 SGL PO; +PROAIR HFA0.09 MG/AC IH; +THE MEDICINE S200 M2 PO
[2018-12-14] VITALS (1171 sets, daily range): O2SAT 75–100
[2018-12-15] VITALS (529 sets, daily range): O2SAT 68–100
[2018-12-16] VITALS (109 sets, daily range): O2SAT 96–100
== END ==
LOC: COL.ER 16:13
DX: Z72.9 Problem related to lifestyle, unspecified (principal)

== ENCOUNTER 2019-01-17 16:41 | Emergency (ER) | payer MEDICARE ==
[~2019-01-17] VITALS: Ht 162.6 cm; Wt 63.6 kg
[2019-01-17] MEDS ORDERED: LASIX 20MG TABL20 MG PO (17:02)
[2019-01-17 17:25] LABS: BASO # 0.1 (0.0-0.2); BASO % 0.9 % (0.0-2.0); EOS # 0.5 (0.0-0.7); EOS % 4.9 % (0-4.0); GRAN # 7.4 (1.4-6.5); GRAN % 69.9 % (42.2-75.2); HEMATOCRIT 42.6 % (42.0-52.0); HEMOGLOBIN 13.1 g/dl (13.5-18.0); LYMPH # 1.4 (1.2-3.4); LYMPH % 12.8 % (20.0-51.0); MEAN CELL VOLUME 98 fl (80.0-100.0); MEAN CORPUSCULAR HEMOGLOBIN 30 pg (27.0-31.0); MEAN CORPUSCULAR HGB CONC 31 g/dl (33.0-37.0); MEAN PLATELET VOLUME 11.3 fl (7.4-10.4); MONO # 1.2 (0.1-0.6); MONO % 11.1 % (1.7-9.3); PLATELET COUNT 238 K/mm3 (130-400); RED BLOOD COUNT 4.36 M/mm3 (4.20-5.60)
[2019-01-17 17:35] LABS: ALBUMIN 3.5 gm/dL (3.5-5.0); BILIRUBIN,TOTAL 1.4 mg/dL (0.0-1.0); CALCIUM 9.7 mg/dL (8.4-10.2); CREATININE, serum 2.63 mg/dL (0.66-1.25); POTASSIUM 5.5 mmol/L (3.4-5.0); TOTAL PROTEIN 6.5 gm/dL (6.4-8.2)
[2019-01-17 17:50] LABS: TROPONIN-I 0.037 ng/mL (0.000-0.035)
[2019-01-17 18:26] LABS: INR 1.4 (0.8-3.0); PROTHROMBIN TIME 15.4 SECONDS (9.7-12.8)
[2019-01-17 18:53] LABS: COLLECTION METHOD CLEAN CATCH
[2019-01-17 19:13] LABS: AMORPHOUS CRYSTAL Present /uL; GRANULAR CAST >12 /lpf; HYALINE CAST >12 /lpf; MUCOUS Present /lpf; PH 5 (5-8); URINE APPEARANCE Cloudy; URINE BACTERIA None Seen /hpf; URINE BILIRUBIN Negative (NEGATIVE); URINE BLOOD Negative (NEGATIVE); URINE COLOR Yellow; URINE GLUCOSE Negative (NEGATIVE); URINE KETONE Negative (NEGATIVE); URINE LEUKOCYTE ESTERASE Trace (NEGATIVE); URINE NITRATE Negative (NEGATIVE); URINE PROTEIN(semi-quant) Negative (NEGATIVE); URINE UROBILINOGEN Negative (NEGATIVE)
[2019-01-17 20:54] VITALS: BP 118/87; PULSE 60
== END 2019-01-17 20:55 | disposition short-term general hospital (02) ==
LOC: COL.ER 16:41
PROVIDERS: Emergency Medicine
DX: E11.22 Type 2 diabetes mellitus with diabetic chronic kidney disease (principal); I50.1 Left ventricular failure, unspecified; I11.0 Hypertensive heart disease with heart failure; J90 Pleural effusion, not elsewhere classified; I50.9 Heart failure, unspecified; Z95.1 Presence of aortocoronary bypass graft; Z79.4 Long term (current) use of insulin; Z87.891 Personal history of nicotine dependence; Z79.82 Long term (current) use of aspirin
CPT/HCPCS: J2270

== ENCOUNTER 2019-02-13 14:32 | Inpatient (IN) | payer MEDICARE ==
[~2019-02-13] VITALS: Ht 162.6 cm; Wt 62.9 kg
--- NOTE | 2019-02-13 16:30 | NUR ---
Pt arrived to room 316 at this time. Family at bedside.
[2019-02-13] MEDS ORDERED: RT SPIRIVA18 MCG IH (16:35)
[2019-02-13] MEDS ORDERED: DEMADEX 20MG20 M1 PO (16:39)
[2019-02-13 16:40] LABS: HEMATOCRIT 41.4 % (42.0-52.0); HEMOGLOBIN 12.9 g/dl (13.5-18.0); MEAN CELL VOLUME 94 fl (80.0-100.0); MEAN CORPUSCULAR HEMOGLOBIN 29 pg (27.0-31.0); MEAN CORPUSCULAR HGB CONC 31 g/dl (33.0-37.0); MEAN PLATELET VOLUME 11.8 fl (7.4-10.4); PLATELET COUNT 200 K/mm3 (130-400); RED BLOOD COUNT 4.43 M/mm3 (4.20-5.60); REDCELL DISTRIBUTION WIDTH-CV 15.9 % (11.5-14.5)
[2019-02-13] MEDS ORDERED: ISORDIL 5MG TABL5 MG PO (16:44)
[2019-02-13] MEDS ORDERED: PROAIR HFA0.09 MG/AC IH (16:44)
[2019-02-13 16:49] LABS: CALCIUM 9.4 mg/dL (8.4-10.2); CREATININE, serum 2.42 mg/dL (0.66-1.25); POTASSIUM 3.7 mmol/L (3.4-5.0)
[2019-02-13 18:17] VITALS: BP 123/80; PULSE 120
--- NOTE | 2019-02-13 18:21 | NUR ---
Pt has been doing well since arriving to the floor. He's denied any pain. Occasional SOB with exertion, currently on 3L O2 via NC. BLE edema present, see assessment. POC discussed with patient and his family. 20G started to LFA, lasix currently infusing. He denies needs at this time. Call light within reach.
[2019-02-13 18:35] LABS: INR 1.2 (0.8-3.0); PROTHROMBIN TIME 13.7 SECONDS (9.7-12.8)
[2019-02-13] MEDS ORDERED: SPIRIVA RE2.5 MCG/Ac IH (18:54)
[2019-02-13 19:42] VITALS: BP 111/63; PULSE 66
--- NOTE | 2019-02-13 21:10 | NUR ---
Pt sitting up in recliner, no C/O pain, shift assessment complete, left Pt call light in reach.
[2019-02-13 23:26] VITALS: BP 121/76; PULSE 61; TEMP 94.6
[2019-02-14] VITALS (8 sets, daily range): BP systolic 106–122; BP diastolic 64–74; PULSE 54–64; TEMP 94.3–98
--- NOTE | 2019-02-14 05:15 | NUR ---
Pt slept some during the night, no C/O pain, VS have remained stable.
[2019-02-14 06:43] LABS: CREATININE, serum 2.21 mg/dL (0.66-1.25); POTASSIUM 3.2 mmol/L (3.4-5.0)
--- NOTE | 2019-02-14 07:00 | NUR ---
Sugar 62, gave patient 4oz of OJ, awaiting thoracentesis. Pt denies any signs of hypoglycemia stating "I don't feel like it's that low". Will continue to monitor.
--- NOTE | 2019-02-14 08:49 | NUR ---
Pt left for thoracentesis at this time.
--- NOTE | 2019-02-14 09:44 | NUR ---
Pt back from thoracentesis at this time.
--- NOTE | 2019-02-14 09:50 | NUR ---
Pt assessment complete. Pt sitting up in chair, he is A/O x3. His breathing is even and unlabored at rest, dyspnea on exertion. Pt currently on 3L O2 via NC. Pt reports pain 6/10 with deep inspiration, site from thoracentesis CDI. Lasix gtt restarted, to GINNY. Nick DE LA ROSA. Pt denies needs at this time. Call light within reach, family at bedside.
--- NOTE | 2019-02-14 13:52 | NUR ---
REINALDO and SW student met with the patient and patient's , Harriet, to discuss discharge plan. The patient lives in [place] with his and granddaughter, Kizzy. He reports independence with ADLs and has a walker he uses occasionally and home oxygen through [facility]. The patient's PCP is Dr. Jameel Nash and he receives his medications at the [facility]. He reports no difficulties obtaininig his meds. The patient's provided SW with a copy of his DPOA-HC and living will. SW placed the copy in the patient's chart. The patient plans to return home with his family upon discharge. No identified needs at this time, but SW to continue to follow.
--- NOTE | 2019-02-14 18:20 | NUR ---
Pt had uneventful day. He denied any pain or concerns. Breathing remained unchanged. Continues on lasix gtt. Nick DE LA ROSA. VSS. Denies needs at this time. Call light within reach.
--- NOTE | 2019-02-14 22:45 | NUR ---
Completed assessment and medication administration; PT tolerated all cares well; No further verbalized or assessed complaints at time of completion; PT may D/C home tomorrow 02/15/19 per evening report; PT A&Ox4, lungs coarse throughout, BS active x4, experiencing weakness, AMB with walker for stability; No further acute complaints of pain or changes; PT assisted to comfortable position in bed with call light in reach; Will continue to monitor. CDA
[2019-02-15] VITALS (7 sets, daily range): BP systolic 102–127; BP diastolic 55–85; PULSE 58–76; TEMP 97.1–98
[2019-02-15 06:35] LABS: ALBUMIN 3.1 gm/dL (3.5-5.0); BILIRUBIN,TOTAL 1.1 mg/dL (0.0-1.0); CALCIUM 9.1 mg/dL (8.4-10.2); CREATININE, serum 2.33 mg/dL (0.66-1.25); MAGNESIUM 2.6 mg/dL (1.6-2.3); POTASSIUM 3.9 mmol/L (3.4-5.0); TOTAL PROTEIN 5.7 gm/dL (6.4-8.2)
--- NOTE | 2019-02-15 07:27 | NUR ---
Report given to Martha RN; PT rested well in bed throughout night and transferred to recliner with SBA; Lasix running 15mL/hr to [facility]; hypogycemic accucheck at 0600 45; administered orange juice PO and recheck result was 64; breakfast arrived to room and PT began to eat; lab called a critical lab result of glucose 36 at approximate 0650, at which time we had already addressed to hypogycemia. Report given for follow up accucheck in AM post breakfast to reach above 70 reading. CDA
--- NOTE | 2019-02-15 09:30 | NUR ---
Pt is A+Ox3, pleasant, denies SOB while on 3 L oxygen via NC. Pt is bradycardic this am at 58, denies dizziness, further symptoms. Physical assessment completed and this RN agrees with SN assessment. INT free of redness, swelling. No further needs, call donn zuniga
--- NOTE | 2019-02-15 11:31 | NUR ---
First visit from the electrical accessories assembler. No needs right now.
--- NOTE | 2019-02-15 13:44 | NUR ---
Primary nurse was assisted with [id number] patient care by [employer] student Cony Ornelas and [employer] instructor Marge Tolentino RN-.
--- NOTE | 2019-02-15 13:50 | NUR ---
Patient sitting in bed talking with family. PT visited patient around 1100. Assessment charted, VSS, patient up to chair. Patient was given Tylenol to control pain. Patient then relaxed in bed until ordering lunch at 1300. Denies further needs at this time. SN Tawana
--- NOTE | 2019-02-15 18:21 | NUR ---
Through shift pt slept most of day, family reports he "fell asleep while ordering lunch". They beleive he is much weaker at end of shift than start of shift. Family reports that pt refuses assistance of his daughter and son in law and wants only his to help him, but that she is too weak to get him up/off bed/toilet etc. pt unsteady standby assist to BSC while here. Minimal oral intake, vitals stable.
--- NOTE | 2019-02-15 19:02 | NUR ---
Report given to Nia RSOE, pt denies needs, sitting in chair at bedside, call light in reach
--- NOTE | 2019-02-15 23:29 | NUR ---
Completed assessment and medication administration; PT tolerated all cares and medications well; No further verbalized complaint of pain or discomfort; PT experienced incontinent semiformed BM; Full bed change completed; PT A&Ox4, BS active x4, continues O2 via NC at 3L; IV INT to LFA; No further complaints or actions at time of exit; PT assisted to comfortable position in bed with call light in reach; Will continue to monitor. CDA
--- NOTE | 2019-02-16 01:53 | NUR ---
PT resting well in bed with NC O2 in place at 3L; duron draining dark yellow clear urine to dependent collection container; PT denies further complaints or pain; PT assisted to a comfortable position in bed with the call light within reach; Will continue to monitor. CDA
[2019-02-16 03:41] VITALS: BP 106/70; PULSE 60; TEMP 97.5
--- NOTE | 2019-02-16 06:05 | NUR ---
FSBS 43 at 0530; Given orange juice and crackers with peanut butter; Recheck in 15 minutes; PT assisted with ordering breakfast. Will continue to monitor. CDA
[2019-02-16 06:24] LABS: CREATININE, serum 2.4 mg/dL (0.66-1.25); POTASSIUM 4.6 mmol/L (3.4-5.0)
--- NOTE | 2019-02-16 06:27 | NUR ---
Recheck of FSBS 78; Assisted PT to order breakfast; Pending report to dayscaft. CDA
--- NOTE | 2019-02-16 06:53 | NUR ---
Report given to MILTON Patel; No significant changes not previously noted. CDA
[2019-02-16 07:38] VITALS: BP 125/84; PULSE 60
--- NOTE | 2019-02-16 07:47 | NUR ---
Patient sitting in chair. Assessment completed, VSS, patient requests PRN Tylenol for "pain all over" described as aching, rated 8/10. Naima Ornelas SN
[2019-02-16 13:30] VITALS: BP 110/62; PULSE 80
--- NOTE | 2019-02-16 13:47 | NUR ---
Primary nurse was assisted with [id number] patient care by [employer] student Cony Ornelas and [employer] instructor Marge Tolentino RN-.
--- NOTE | 2019-02-16 16:09 | NUR ---
SW met with the patient and patient's to review discharge plan and to discuss home health services. The patient and patient's report that the plan is for the patient to return home and that they were not interested in home health services at this time. The patient's reports that their granddaughter's , who they live with, is an EMT. SW to continue to follow.
[2019-02-16 17:29] VITALS: BP 104/60; PULSE 58; TEMP 97.5
[2019-02-16 21:47] VITALS: BP 94/65; PULSE 61; TEMP 97
[2019-02-17 00:24] VITALS: BP 105/66; PULSE 68; TEMP 98
[2019-02-17 04:56] VITALS: BP 111/59; PULSE 60
--- NOTE | 2019-02-17 05:48 | NUR ---
PT HAD UNEVENTFUL NOC. HAD SOME SLIGHT CONFUSION IN MIDDLE OF NOC, REORINETED TO PLACE AND THEN PT WAS HAD NO FURTHER COMPLAINTS. SLEPT IN BED MOST OF NIGHT THEN EARLY AM APPROX 0400 PT WENT TO RECLINER AND SLEPT THERE. NO ISSUES OR CONSERNS VOICED.
[2019-02-17 09:10] LABS: CALCIUM 9.2 mg/dL (8.4-10.2); CREATININE, serum 2.56 mg/dL (0.66-1.25); MAGNESIUM 2.9 mg/dL (1.6-2.3); POTASSIUM 4.7 mmol/L (3.4-5.0)
[2019-02-17 12:54] VITALS: BP 109/66; PULSE 63; TEMP 97.5
[2019-02-17 16:54] VITALS: BP 118/75; PULSE 81; TEMP 97.6
[2019-02-17 20:00] VITALS: BP 103/54; PULSE 59; TEMP 97.3
[2019-02-18] VITALS (7 sets, daily range): BP systolic 105–122; BP diastolic 55–76; PULSE 59–86; TEMP 97.4–98.3
--- NOTE | 2019-02-18 05:12 | NUR ---
PT HAD LARGE LOOSE STOOL THIS NOC OF GREEN/BLACK COLOR. HAS SOME REDNESS TO COCCYX AND SCRODUM, APPLIED BARRIER CREAM. PT HAD BEEN BACK AND FORTH FROM BED TO RECLINER THROUGHOUT NOC. LASIX GTT INFUSING WITHOUT ISSUE
--- NOTE | 2019-02-18 08:00 | NUR ---
Up to the chair at this time. No pain or needs reported and the call light is in place.
[2019-02-18 10:11] LABS: CALCIUM 9.1 mg/dL (8.4-10.2); CREATININE, serum 2.5 mg/dL (0.66-1.25); POTASSIUM 3.6 mmol/L (3.4-5.0)
--- NOTE | 2019-02-18 19:48 | NUR ---
No change throughout the shift. The patient was up to the chair and back to bed multiple times. No pain reported. Swelling to legs bilaterally has improved. Family has been at the bedside all day. Report given to MILTON Benítez to resume.
--- NOTE | 2019-02-18 20:50 | NUR ---
Shift assessment complete. Pt resting in bedside recliner, sleepy but easy to wake, oriented x4, cooperative c cares. Pt reports being "really tired", when asked to take HS meds, pt states "let's hold off for now". Pt denies any specific c/o. Denies needs. INT patent. Tele in place. PT denies needs. Call light in reach, will monitor.
[2019-02-19 05:02] VITALS: BP 108/55; PULSE 61; TEMP 98.1
[2019-02-19 06:56] LABS: CALCIUM 8.9 mg/dL (8.4-10.2); CREATININE, serum 2.59 mg/dL (0.66-1.25); POTASSIUM 3.3 mmol/L (3.4-5.0)
[2019-02-19 08:05] VITALS: BP 112/76; PULSE 74; TEMP 97.6
--- NOTE | 2019-02-19 09:15 | NUR ---
Assessment complete. Pt is drowsy but arrousable to voice. Denies having any pain at this time. Breathing is even and but labored after moving from the bed to the chair. Tele on. LA infusing, remains free of complications, and is CDI. Pt's family members are at the bedside; all questions answered. Pt is sitting up in the chair and he denies further needs. Call light within reach, will continue to monitor.
--- NOTE | 2019-02-19 11:29 | NUR ---
Met with pt and family members at bedside initially at 0930 to discuss goals of care, and explore what their preferences are. Family is accepting of the information, questions were encouraged and per family request, hospice care options were discussed. They are familiar with [facility] as a friend had family member there and per pt "That's good enough for me". Information forwarded to [facility] and visit requested from their social insurance specialist who is here now to talk with the family. We will wait to hear from them how they are feeling after the visit and will follow up accordingly.
[2019-02-19 11:42] VITALS: BP 104/67; PULSE 86; TEMP 97.9
--- NOTE | 2019-02-19 15:08 | NUR ---
Spoke with Kizzy outside of room. She reports that her grandfather was very receptive to the [facility] and that the family has already gone over there and picked out his room. She remains very positive about a transition of care to this facility when the doctors feel it is time.
[2019-02-19 16:41] VITALS: BP 87/64; PULSE 123; TEMP 98
[2019-02-19 17:39] VITALS: BP 108/75; PULSE 78
--- NOTE | 2019-02-19 19:28 | NUR ---
Pt has been resting on and off throughout the day. He has remained free of pain. Family members have remained at the bedside; all questions answered. Pt is sitting up in the chair at this time and he denies further needs. Call light within reach. Report given to MILTON Benítez.
[2019-02-19 20:10] VITALS: BP 96/62; PULSE 82; TEMP 97.8
--- NOTE | 2019-02-19 20:10 | NUR ---
Shift assessment complete. Pt resting in bedside recliner, sleepy but easy to wake, a&o, cooperative c cares. Pt denies pain or any other c/o. IV patent; lasix gtt infusing per orders. O2 per NC. Tele in place. Romero to DD. Pt denies needs. Call light in reach, will monitor.
[2019-02-20 03:21] VITALS: BP 104/72; PULSE 74
[2019-02-20 06:39] LABS: CALCIUM 8.9 mg/dL (8.4-10.2); CREATININE, serum 2.48 mg/dL (0.66-1.25)
[2019-02-20 06:52] LABS: POTASSIUM 2.6 mmol/L (3.4-5.0)
[2019-02-20 07:51] VITALS: BP 145/60; PULSE 71; TEMP 98.9
[2019-02-20 08:12] VITALS: BP 112/60; PULSE 73; TEMP 97.6
--- NOTE | 2019-02-20 08:30 | NUR ---
Pt alert and oriented. Pt lung sounds coarse and crackles noted throughout. Pt has family at bedside. Pt took am meds without difficulty this am. Pt potassium low this am and given IV potassium and oral potassium as ordered. Pt to have recheck of labs around noon to follow up on potassium level and then discharge to [facility]. Pt IV patent and no infiltration or redness noted. Pt has call light in reach. Pt given PRN Tylenol for pain in right hand. Pt denies needs at this time.
[2019-02-20] MEDS ORDERED: DIAMOX 250MG250 MG PO (08:50)
[2019-02-20] MEDS ORDERED: ZAROXOLYN5 MG PO (08:51)
[2019-02-20] MEDS ORDERED: CENA K40 MEQ/15 PO (08:52)
[2019-02-20] MEDS ORDERED: DEMADEX 20MG20 M1 PO (08:53)
--- NOTE | 2019-02-20 11:02 | NUR ---
REINALDO met with patient and family abut discharging to the [facility] house today. Patient's family reports they will take patient to the hospice house. REINALDO presented IM to patient and family. Patient's signed but did not request a copy. REINALDO will fax discharge orders.
[2019-02-20 11:07] VITALS: BP 91/60; PULSE 73; TEMP 97.4
[2019-02-20 13:01] LABS: CALCIUM 8.8 mg/dL (8.4-10.2); CREATININE, serum 2.58 mg/dL (0.66-1.25); POTASSIUM 3.1 mmol/L (3.4-5.0)
[2019-02-20 15:35] VITALS: BP 91/60; PULSE 73; TEMP 97.4
--- NOTE | 2019-02-20 16:07 | NUR ---
Pt assisted getting dressed and ready to go by aide. Pt discharging with duron cath placed on 02/13/19 patent with clear yellow return noted. Pt alert and oriented and refuses to let nurse help pt pull up his pants and transfer to chair. Pt was very unsteady and weak. Pt told nurse to put her hands down and not help the pt. Pt then asked nurse to stand over there as nurse put her hand out as pt swayed backward. Pt sat back down in chair and was not going to move until this nurse stepped away. Charge notified and stood by for assistance for pt and he transferred unsteadily to chair. Pt refused oxygen for the ride to hospice. Pt has transfer packet and report called to Berna at Hospice. Pt IV discontinued in right hand. No infiltration noted but site did bruise. Pt escorted via wheelchair by aide and charge nurse to private car for transfer per request of pt. Pressure held and drsg applied.
== END 2019-02-20 16:10 | disposition hospice, inpatient (51) | DRG 291 ==
LOC: MEDICAL 14:32
PROVIDERS: Internal Medicine Cardiovascular Disease; ADMIT Internal Medicine Interventional Cardiology
PROC: 0W993ZZ Drainage of Right Pleural Cavity, Percutaneous Approach (ICD-10-PCS; principal; 2019-02-14)
DX: I13.0 Hypertensive heart and chronic kidney disease with heart failure and stage 1 through stage 4 chronic kidney disease, or unspecified chronic kidney disease (principal); I50.23 Acute on chronic systolic (congestive) heart failure; J90 Pleural effusion, not elsewhere classified; Z51.5 Encounter for palliative care; Z66 Do not resuscitate; N18.3 Chronic kidney disease, stage 3 (moderate); I50.84 End stage heart failure; I25.10 Atherosclerotic heart disease of native coronary artery without angina pectoris; Z95.1 Presence of aortocoronary bypass graft; E78.5 Hyperlipidemia, unspecified; I48.0 Paroxysmal atrial fibrillation; I25.5 Ischemic cardiomyopathy; Z95.810 Presence of automatic (implantable) cardiac defibrillator; E87.6 Hypokalemia; Z87.891 Personal history of nicotine dependence
CPT/HCPCS: J1650; J1815; J1940; J3480